=== PATIENT | female | born 1945 | race Caucasian/White ===

== ENCOUNTER 2017-03-22 17:10 | Inpatient (IN) | payer MEDICARE, MEDICAID ==
[~2017-03-22] VITALS: Ht 167.6 cm; Wt 87.3 kg
[~2017-03-22 17:10] MED LIST: ACET325T14 PO; ALBU2.5V NEB; ASPI-496 PO; DOCU-131 PO; FLUT12AE2 INH; GABA300C10 PO; OXYC-302 PO; SERT25TA3 PO; SIMV10TA3 PO; TIOT18CA INH; [UNRECOGNIZED DRUG - CODE] PO
[2017-03-22] MEDS ORDERED: ALBUTEROL/IPRATROPIUM 2.5MG/0.5MG, 3 ML NPPB ONE (17:30)
[2017-03-22] MEDS ORDERED: ASPIRIN 81 MG TABLET CHEW PO ONE (17:30)
[2017-03-22] MEDS ORDERED: ASPIRIN 81 MG TABLET CHEW ONE (17:43)
[2017-03-22 18:00] LABS: HEMATOCRIT 41.7 % (34.6-47.8); WHITE BLOOD COUNT 7.1 x10^3/uL (3.4-10)
[2017-03-22] MEDS ORDERED: SODIUM CHLORIDE 0.9% 1,000 ML IV ONE ×2 (18:00)
[2017-03-22] MEDS ORDERED: ALBUTEROL/IPRATROPIUM 2.5MG/0.5MG, 3 ML ONE (18:01)
[2017-03-22 18:09] LABS: BLOOD UREA NITROGEN 12 mg/dL (7-18)
[2017-03-22 18:14] LABS: IS PT STATUS REG ER OR PRE ER? YES
[2017-03-22] MEDS ORDERED: OMNIPAQUE 350 MG/ML, 100ML BOTTLE ONE (19:52)
[2017-03-22] MEDS ORDERED: ACETAMINOPHEN 325 MG TABLET PO PRN (21:30)
[2017-03-22] MEDS ORDERED: BISACODYL 10 MG SUPP PR PRN (21:30)
[2017-03-22] MEDS ORDERED: POLYETHYLENE GLYCOL 17 GM PACKET PO PRN (21:30)
[2017-03-22] MEDS ORDERED: ONDANSETRON 2MG/ML, 2ML IVPush PRN (21:30)
[2017-03-22] MEDS ORDERED: NITROGLYCERIN 0.4 MG BOTTLE (25 TABS) SL PRN (21:30)
[2017-03-22] MEDS ORDERED: SIMVASTATIN 10 MG TABLET PO SCH (21:30)
[2017-03-22 22:36] VITALS: BP 122/80
[2017-03-22] MEDS ORDERED: TRAZODONE 50MG TABLET PO PRN (23:00)
[2017-03-22] MEDS: KETOROLAC 30 MG/1 ML IVPush PRN (23:24)
[2017-03-22] MEDS: HEPARIN 5,000 UNITS/ML, 1ML SQ SCH (23:24)
[2017-03-22] MEDS: SODIUM CHLORIDE FLUSH 10ML SYR IVF SCH (23:27)
[2017-03-23 01:00] LABS: IS PT STATUS REG ER OR PRE ER? NO
[2017-03-23 03:45] VITALS: BP 107/72
[2017-03-23 05:36] VITALS: BP 114/67
[2017-03-23 05:50] VITALS: BP 145/96
[2017-03-23 05:58] VITALS: BP 137/85
[2017-03-23] MEDS: KETOROLAC 30 MG/1 ML IVPush PRN ×2 (06:01→12:26)
[2017-03-23 06:35] LABS: HEMOGLOBIN 12.9 g/dL (11.7-16.4); WHITE BLOOD COUNT 7.2 x10^3/uL (3.4-10)
[2017-03-23] MEDS ORDERED: ALBUTEROL/IPRATROPIUM 2.5MG/0.5MG, 3 ML ONE (06:35)
[2017-03-23 06:47] LABS: BLOOD UREA NITROGEN 10 mg/dL (7-18)
[2017-03-23 06:50] LABS: ASPARTATE AMINO TRANSFERASE 27 U/L (15-37)
[2017-03-23 06:52] LABS: IS PT STATUS REG ER OR PRE ER? NO
[2017-03-23 08:00] VITALS: BP 131/86
[2017-03-23] MEDS: SODIUM CHLORIDE FLUSH 10ML SYR IVF SCH (08:48)
[2017-03-23] MEDS: HEPARIN 5,000 UNITS/ML, 1ML SQ SCH (08:48)
[2017-03-23] MEDS ORDERED: SENNA/DOCUSATE TABLET PO SCH (09:00)
[2017-03-23] MEDS ORDERED: ASPIRIN 81 MG TABLET EC PO SCH (09:00)
[2017-03-23] MEDS ORDERED: TEMPLATE NON-FORMULARY MED. (Tiotropium Bromide** (Spiriva**) 18 MCG) INH SCH (09:00)
[2017-03-23] MEDS ORDERED: ALBUTEROL SULFATE 2.5 MG/3 ML NPPB SCH (09:00)
[2017-03-23] MEDS ORDERED: ACET325T14 PO (12:25)
[2017-03-23] MEDS ORDERED: KETO10TA PO (12:25)
[2017-03-23] MEDS ORDERED: Lidoderm 5% Patch TD (12:25)
[2017-03-23] MEDS ORDERED: LIDODERM 5% PATCH TD SCH (12:30)
== END 2017-03-23 13:59 | disposition home or self-care (01) | DRG 206 ==
LOC: ED 17:29 → EDIP 20:39 → 5SO 22:01
PROVIDERS: ADMIT Hospitalist; ATTEND Hospitalist
DX: M94.0 Chondrocostal junction syndrome [Tietze] (principal); J96.11 Chronic respiratory failure with hypoxia; Z99.81 Dependence on supplemental oxygen; J44.9 Chronic obstructive pulmonary disease, unspecified; J98.11 Atelectasis; F32.9 Major depressive disorder, single episode, unspecified; F41.1 Generalized anxiety disorder; I10 Essential (primary) hypertension; Z88.6 Allergy status to analgesic agent; Z79.82 Long term (current) use of aspirin; Z87.891 Personal history of nicotine dependence; Z90.710 Acquired absence of both cervix and uterus
CPT/HCPCS: 36415; 71010; 71275; 80048; 80053; 80061; 82040; 83880; 84439; 84443; 84484; 85025; 93005; 94640; 99285; J1644; J1885; J7613; Q9967; J7030

== ENCOUNTER 2018-01-15 16:49 | Observation (INO) | payer MEDICARE, MEDICAID ==
[~2018-01-15] VITALS: Ht 170.2 cm; Wt 75.0 kg
[~2018-01-15 16:49] MED LIST changes: +KETO10TA PO; +Lidoderm 5% Patch TD
[2018-01-15] MEDS ORDERED: QUET25TA5 PO (17:21)
[2018-01-15] MEDS ORDERED: TRAZ-137 PO (17:21)
[2018-01-15] MEDS ORDERED: LISI-167 PO (17:21)
[2018-01-15] MEDS ORDERED: ESCI5TAB7 PO (17:21)
[2018-01-15 18:21] LABS: BASOPHILS # (AUTO) 0.06 x10^3/uL (0-0.1); BASOPHILS % (AUTO) 1 % (0-1); EOSINOPHILS % (AUTO) 5 % (1-7); LYMPHOCYTES # (AUTO) 1.84 x10^3/uL (1-3.4); LYMPHOCYTES % (AUTO) 28 % (22-44); MD NO; MEAN CORPUSCULAR HEMOGLOBIN 31.5 pg (27.0-34.8); MEAN CORPUSCULAR HGB CONC 34.2 g/dL (32.4-35.8); MEAN CORPUSCULAR VOLUME 92.3 fL (80-100); MEAN PLATELET VOLUME 8.9 fL (7.4-10.4); MONOCYTES % (AUTO) 11 % (2-9); NEUTROPHILS # (AUTO) 3.68 x10^3/uL (1.8-6.8); NEUTROPHILS % (AUTO) 56 % (42-75); PLATELET COUNT 275 x10^3/uL (130-400); RED BLOOD COUNT 4.65 x10^6/uL (3.82-5.3); RED CELL DISTRIBUTION WIDTH 12.9 % (9.6-15.2)
[2018-01-15 18:35] LABS: CHLORIDE 110 mmol/L (98-107)
[2018-01-15 18:36] LABS: ALANINE AMINOTRANSFERASE 21 U/L (12-78); ALBUMIN 3.4 g/dL (3.4-5.0); ANION GAP 4 mmol/L (5-15); CREATININE 0.82 mg/dL (0.55-1.02)
[2018-01-15 18:37] LABS: ALKALINE PHOSPHATASE 107 U/L (45-117); BILIRUBIN,TOTAL 0.9 mg/dL (0.2-1.0); TOTAL PROTEIN 7.1 g/dL (6.4-8.2)
[2018-01-15 18:39] LABS: ACETAMINOPHEN < 2 mcg/mL (10-30); SALICYLATE LEVEL < 1.7 mg/dL (2.8-20.0)
[2018-01-15 20:12] LABS: CULTURE INDICATED? YES; MICROSCOPIC INDICATED
[2018-01-15 20:30] LABS: AMPHETAMINE SCREEN, URINE Negative (Negative); BARBITURATE SCREEN, URINE Negative (Negative); BENZODIAZEPINE SCREEN, URINE Negative (Negative); CANNABINOID SCREEN, URINE Negative (Negative); COCAINE SCREEN, URINE Negative (Negative); OPIATE SCREEN, URINE Negative (Negative)
[2018-01-15 20:38] LABS: METHADONE SCREEN, URINE Negative (Negative)
[2018-01-15] MEDS ORDERED: TRAZODONE 50MG TABLET PO PRN (21:00)
[2018-01-15] MEDS ORDERED: ACETAMINOPHEN 325 MG TABLET PO PRN (21:00)
[2018-01-15] MEDS ORDERED: QUETIAPINE 25MG TABLET PO PRN (21:00)
[2018-01-15] MEDS ORDERED: DOCUSATE 100 MG CAPSULE PO PRN (21:00)
[2018-01-15] MEDS ORDERED: ONDANSETRON ODT 4 MG PO PRN (21:00)
[2018-01-15 22:45] VITALS: BP 131/84
[2018-01-16] MEDS: ALBUTEROL/IPRATROPIUM 2.5MG/0.5MG, 3 ML NPPB SCH ×2 (00:01→09:15)
[2018-01-16] MEDS ORDERED: IPRATROPIUM 0.5 MG/2.5 ML INHA NPPB SCH (07:00)
[2018-01-16 08:04] VITALS: BP 99/48
== END 2018-01-16 14:49 ==
LOC: ED 19:36 → EDIP 20:05 → 2N 22:44
PROVIDERS: ADMIT Internal Medicine; ATTEND Internal Medicine
DX: R45.851 Suicidal ideations (principal); F29 Unspecified psychosis not due to a substance or known physiological condition; F31.9 Bipolar disorder, unspecified; I10 Essential (primary) hypertension; J44.9 Chronic obstructive pulmonary disease, unspecified; Z86.19 Personal history of other infectious and parasitic diseases; Z87.891 Personal history of nicotine dependence; Z90.710 Acquired absence of both cervix and uterus; Z91.14 Patient's other noncompliance with medication regimen; Z91.19 Patient's noncompliance with other medical treatment and regimen; M19.90 Unspecified osteoarthritis, unspecified site
CPT/HCPCS: 36415; 80053; 80307; 80329; 81001; 85025; 87086; 93005; 94640; 99285; G0378; J7620; G0480

== ENCOUNTER 2018-03-10 11:35 | Observation (INO) | payer MEDICARE, MEDICAID ==
[~2018-03-10] VITALS: Ht 167.6 cm; Wt 89.8 kg
[~2018-03-10 11:35] MED LIST changes: +CITA10TA8 PO; +ESCI5TAB7 PO; +LISI-167 PO; +OLAN5TAB9 PO; +PANT40TA5 PO; +QUET25TA5 PO; +SENN1TAB8 PO; +TRAZ-137 PO
[2018-03-10 12:52] LABS: MICROSCOPIC INDICATED
[2018-03-10 12:57] LABS: AMPHETAMINE SCREEN, URINE Negative (Negative); BARBITURATE SCREEN, URINE Negative (Negative); BENZODIAZEPINE SCREEN, URINE Negative (Negative); CANNABINOID SCREEN, URINE Negative (Negative); COCAINE SCREEN, URINE Negative (Negative); METHADONE SCREEN, URINE Negative (Negative); OPIATE SCREEN, URINE Negative (Negative)
[2018-03-10 12:59] LABS: BASOPHILS # (AUTO) 0.04 x10^3/uL (0-0.1); BASOPHILS % (AUTO) 1 % (0-1); EOSINOPHILS # (AUTO) 0.22 x10^3/uL (0-0.4); EOSINOPHILS % (AUTO) 4 % (1-7); LYMPHOCYTES # (AUTO) 1.52 x10^3/uL (1-3.4); LYMPHOCYTES % (AUTO) 26 % (22-44); MD NO; MEAN CORPUSCULAR HGB CONC 33.9 g/dL (32.4-35.8); MEAN CORPUSCULAR VOLUME 91.5 fL (80-100); MEAN PLATELET VOLUME 9.4 fL (7.4-10.4); MONOCYTES # (AUTO) 0.85 x10^3/uL (0.2-0.8); MONOCYTES % (AUTO) 14 % (2-9); NEUTROPHILS # (AUTO) 3.33 x10^3/uL (1.8-6.8); NEUTROPHILS % (AUTO) 56 % (42-75); PLATELET COUNT 322 x10^3/uL (130-400); RED BLOOD COUNT 4.76 x10^6/uL (3.82-5.3); RED CELL DISTRIBUTION WIDTH 13.4 % (9.6-15.2)
[2018-03-10 13:10] LABS: ACETONE, SERUM Small (20mg/dL) mg/dL (Negative)
[2018-03-10 13:11] LABS: ALANINE AMINOTRANSFERASE 22 U/L (12-78); ALBUMIN 3.8 g/dL (3.4-5.0); ANION GAP 8 mmol/L (5-15); CALCIUM 8.9 mg/dL (8.5-10.1); CHLORIDE 107 mmol/L (98-107); CREATININE 0.87 mg/dL (0.55-1.02)
[2018-03-10 13:12] LABS: SALICYLATE LEVEL < 1.7 mg/dL (2.8-20.0)
[2018-03-10 13:14] LABS: ALKALINE PHOSPHATASE 124 U/L (45-117); BILIRUBIN,TOTAL 0.5 mg/dL (0.2-1.0); TOTAL PROTEIN 7.4 g/dL (6.4-8.2)
[2018-03-10 13:15] LABS: ACETAMINOPHEN < 2 mcg/mL (10-30)
[2018-03-10 13:22] LABS: CULTURE INDICATED? YES
[2018-03-10] MEDS ORDERED: OLAN5TAB3 PO (13:32)
[2018-03-10] MEDS ORDERED: Celexa PO (13:32)
[2018-03-10 13:33] LABS: INTERNATIONAL NORMALIZED RATIO 0.99 (0.93-1.1); PROTHROMBIN TIME 10.3 Seconds (9.6-11.5)
[2018-03-10 15:24] LABS: CULTURE INDICATED? NO; MICROSCOPIC NOT IND
[2018-03-10] MEDS ORDERED: ALBUTEROL SULFATE 2.5 MG/3 ML NEB SCH (21:00)
[2018-03-10] MEDS ORDERED: OLANZAPINE 5 MG TABLET PO SCH (21:00)
[2018-03-10 21:38] VITALS: BP 127/62
[2018-03-11] MEDS ORDERED: LISINOPRIL 10 MG TABLET PO SCH (09:00)
[2018-03-11] MEDS ORDERED: IPRATROPIUM 0.5 MG/2.5 ML INHA NPPB SCH (15:00)
== END 2018-03-11 21:36 | disposition home or self-care (01) ==
LOC: ED 12:39 → EDIP 16:20
PROVIDERS: ADMIT Internal Medicine; ATTEND Internal Medicine
DX: R45.851 Suicidal ideations (principal); F31.9 Bipolar disorder, unspecified; F41.1 Generalized anxiety disorder; I10 Essential (primary) hypertension; F29 Unspecified psychosis not due to a substance or known physiological condition; J44.9 Chronic obstructive pulmonary disease, unspecified; R44.0 Auditory hallucinations; Z87.891 Personal history of nicotine dependence; Z90.710 Acquired absence of both cervix and uterus
CPT/HCPCS: 36415; 80053; 80307; 80329; 81001; 81003; 82010; 82140; 83605; 85025; 85610; 87040; 87086; 93005; 99285; G0378; G0480

== ENCOUNTER 2018-11-21 14:29 | Emergency (ER) | payer MEDICARE, MEDICAID ==
[~2018-11-21] VITALS: Ht 170.2 cm; Wt 87.5 kg
[~2018-11-21 14:29] MED LIST changes: +Celexa PO; +OLAN5TAB3 PO; +SENN-177 PO; -SENN1TAB8 PO
[2018-11-21] MEDS ORDERED: FAMO20TA7 PO (14:44)
[2018-11-21] MEDS ORDERED: QUET25TA70 PO (14:44)
[2018-11-21] MEDS ORDERED: SODIUM CHLORIDE FLUSH 10ML SYR IVF ONE (15:00)
[2018-11-21 15:05] LABS: BASOPHILS # (AUTO) 0.02 x10^3/uL (0-0.1); BASOPHILS % (AUTO) 0 % (0-1); EOSINOPHILS # (AUTO) 0.28 x10^3/uL (0-0.4); EOSINOPHILS % (AUTO) 4 % (1-7); LYMPHOCYTES % (AUTO) 21 % (22-44); MD NO; MEAN CORPUSCULAR HGB CONC 32.9 g/dL (32.4-35.8); MEAN CORPUSCULAR VOLUME 94.4 fL (80-100); MEAN PLATELET VOLUME 9.6 fL (7.4-10.4); MONOCYTES # (AUTO) 0.59 x10^3/uL (0.2-0.8); MONOCYTES % (AUTO) 9 % (2-9); NEUTROPHILS # (AUTO) 4.53 x10^3/uL (1.8-6.8); NEUTROPHILS % (AUTO) 67 % (42-75); PLATELET COUNT 296 x10^3/uL (130-400); RED BLOOD COUNT 4.32 x10^6/uL (3.82-5.3); RED CELL DISTRIBUTION WIDTH 12.8 % (9.6-15.2)
[2018-11-21 15:17] LABS: ALBUMIN 3.7 g/dL (3.4-5.0); ANION GAP 7 mmol/L (5-15); CALCIUM 8.8 mg/dL (8.5-10.1); CHLORIDE 112 mmol/L (98-107); CREATININE 0.82 mg/dL (0.55-1.02)
[2018-11-21 15:21] LABS: TROPONIN I < 0.015 ng/mL (0.000-0.045)
--- NOTE | 2018-11-21 15:32 | NUR ---
AMBULATORY TO & FROM [facility] W/OUT INCIDENT, USING OWN WHEELED WALKER; VOIDED URINE SPECIMEN PROVIDED - CLOUDY YELLOW.
[2018-11-21 16:04] LABS: CULTURE INDICATED? YES; MICROSCOPIC INDICATED
--- NOTE | 2018-11-21 16:22 | NUR ---
PT REPORT TO KATLYN ECHAVARRIA RN. PT CARE TRANSFERRED.
--- NOTE | 2018-11-21 16:24 | NUR ---
I AM ASSUMING CARE OF THIS PT FROM ROSEY ([facility]ARTA) WHILE SHE HAS A LUNCHBREAK. SBAR WAS EXCHANGED AT THE BEDSIDE.
--- NOTE | 2018-11-21 17:09 | NUR ---
ROSEY (RN) IS ASSUMIMNG CARE OF THIS PT AT THIS TIME. SBAR REPORT WAS EXCHANGED AT THE BEDSIDE.
--- NOTE | 2018-11-21 17:15 | NUR ---
PT CARE RESUMED.
[2018-11-21 17:46] VITALS: BP 150/86
--- NOTE | 2018-11-21 17:46 | NUR ---
ASSUMED CARE FOR DISCHARGE ONLY Patient/Caregiver given discharge instructions and they have confirmed that they understand the instructions. Patient ambulatory with steady gait.
== END 2018-11-21 17:48 | disposition home or self-care (01) ==
LOC: ED 17:24
DX: R00.2 Palpitations (principal); R35.0 Frequency of micturition; I10 Essential (primary) hypertension; F31.9 Bipolar disorder, unspecified; F41.1 Generalized anxiety disorder; J44.9 Chronic obstructive pulmonary disease, unspecified; Z90.710 Acquired absence of both cervix and uterus; Z87.891 Personal history of nicotine dependence; Z88.5 Allergy status to narcotic agent
CPT/HCPCS: 36415; 71045; 80048; 81001; 82040; 84484; 85025; 87086; 93005; 99284